=== PATIENT | male | born 1965 | race Caucasian/White ===

== ENCOUNTER 2019-05-19 13:14 | Emergency (ER) | payer OTHER ==
[~2019-05-19 13:14] MED LIST: Sodium Chloride Irrig Solution 250 ML BOT ONE
[2019-05-19] MEDS ORDERED: Bacitracin 1 PK ONE (14:06)
[2019-05-19] MEDS ORDERED: Adacel (T-DAP) 0.5 ML SYRINGE ONE (14:37)
== END 2019-05-19 14:20 | disposition home or self-care (01) ==
LOC: MADERS 13:14
DX: S61.212A Laceration without foreign body of right middle finger without damage to nail, initial encounter (principal); I10 Essential (primary) hypertension; E11.9 Type 2 diabetes mellitus without complications; Z79.82 Long term (current) use of aspirin; Z79.84 Long term (current) use of oral hypoglycemic drugs; X58.XXXA Exposure to other specified factors, initial encounter
CPT/HCPCS: 12002; 90471; 90715

== ENCOUNTER 2019-06-01 12:44 | Outpatient (CLI) | payer OTHER ==
--- NOTE | 2019-06-01 13:17 | RAD ---
3 views of the right middle finger: 06/01/2019 COMPARISON: None HISTORY: Laceration to the third digit FINDINGS: There is soft tissue swelling involving the dorsal aspect of the middle finger distally. No radiopaque foreign body. No displaced fracture or evidence of dislocation. IMPRESSION: Soft tissue swelling with no acute osseous abnormality.
== END 2019-06-01 12:45 | disposition home or self-care (01) ==
LOC: MADRAD 12:44
PROVIDERS: ATTEND Family Medicine
DX: S65.51 Laceration of blood vessel of other and unspecified finger (principal); M79.89 Other specified soft tissue disorders